=== PATIENT | female | born 1965 | race Caucasian/White ===

== ENCOUNTER 2016-09-21 23:35 | Emergency (ER) | payer MEDICAID, OTHER ==
[~2016-09-21] VITALS: Ht 172.7 cm; Wt 81.6 kg
[2016-09-21 23:35] VITALS: BP_SYST 118
[2016-09-22] MEDS ORDERED: HYDROcodone/ACETAMIN 7.5-325 MG TAB PO ONE (00:15)
[2016-09-22] MEDS ORDERED: KETOROLAC TROMETHAMINE 60 MG/2 ML VIAL IM ONE (00:15)
[2016-09-22 00:50] VITALS: BP_SYST 118
== END 2016-09-22 00:50 | disposition home or self-care (01) ==
LOC: SED 23:35
DX: M25.561 Pain in right knee (principal); Z88.1 Allergy status to other antibiotic agents; Z98.890 Other specified postprocedural states
CPT/HCPCS: 96372; 99283; J1885

== ENCOUNTER 2017-01-20 15:48 | Emergency (ER) | payer MEDICAID, MEDICARE ==
[~2017-01-20] VITALS: Ht 172.7 cm; Wt 81.6 kg
[2017-01-20 15:50] VITALS: BP_SYST 111
[2017-01-20 16:39] LABS: BASOPHILS % (AUTO) 0.4 % (0.0-2.0); EOSINOPHILS # (AUTO) 0.3 K/uL (0.0-0.4); EOSINOPHILS % (AUTO) 5.1 % (0.0-4.0); HEMATOCRIT 39.1 % (36-48); HEMOGLOBIN 13.3 g/dL (12.0-16.0); LYMPHOCYTES % (AUTO) 34.5 % (20.5-51.5); MEAN CORPUSCULAR HEMOGLOBIN 32 pg (27-31); MEAN CORPUSCULAR HGB CONC 34 % (32-36); MEAN CORPUSCULAR VOLUME 93 fL (79.0-98.0); MONOCYTES # (AUTO) 0.3 K/uL (0.0-1.0); MONOCYTES % (AUTO) 4.6 % (1.7-9.3); NEUTROPHILS # (AUTO) 3.1 K/uL (1.8-7.7); NEUTROPHILS % (AUTO) 55.4 % (40.0-70.0); PLATELET COUNT (AUTO) 160 K/uL (130-430); RED BLOOD CELL COUNT(AUTO) 4.21 MIL/uL (4.2-6.2); RED CELL DISTRIBUTION WIDTH 12.3 % (9.0-15.0); WHITE BLOOD COUNT (AUTO) 5.7 K/uL (4.8-10.8)
[2017-01-20 16:55] LABS: PROTHROMBIN TIME 10.6 SECS (9.5-12.5)
[2017-01-20 17:02] LABS: ALBUMIN 3.7 g/dL (3.4-4.8); CREATININE 0.89 mg/dL (0.55-1.30); POTASSIUM 3.8 mmol/L (3.5-5.1); TOTAL BILIRUBIN 0.3 mg/dL (0.0-1.0)
[2017-01-20 17:11] LABS: CALCIUM 8.7 mg/dL (8.4-11.0)
--- NOTE | 2017-01-20 17:51 | NUR ---
Note undone in EDM - 01/20/17 at 1828 by [email or web address] Patient given written and verbal discharge instructions and verbalizes understanding. ER discussed with patient the results and treatment provided. Patient in stable condition. ID arm band removed. No Rx given. Patient educated on pain management and to follow up with PMD. Pain Scale 0. Opportunity for questions provided and answered.
--- NOTE | 2017-01-20 17:56 | NUR ---
Ambulatory to bed 8
--- NOTE | 2017-01-20 17:57 | NUR ---
Placed on soap drier operator. Pt HR 52 - 45. Pt states that her normal HR is in the 40's to 50's. Denies chest pain or palpitations at this time. C/O severe persistant headache since this morning. Taken mult OTC medication without relief.
--- NOTE | 2017-01-20 17:57 | NUR ---
Patient brought to room 8 here for palpitations, chest pressure, ambulatory. Endorsed car to [place] MASON.
--- NOTE | 2017-01-20 17:59 | NUR ---
Pt complains of intermittent palpitations and a headache since 0830 this morning. Per patient she has had a headache since 0830 this morning and "tried every over the counter medication to get rid of it, and nothing worked." Pt states she had felt dizzy at one point today but she thinks it's because of how bad the headache is making her feel. Pt denies N/V at the time. Pt relayed that her resting heart rate baseline is in the 40's. No other injuries/complaints per patient or noted.
[2017-01-20 18:19] LABS: BILIRUBIN,URINE NEGATIVE (NEGATIVE); BLOOD, URINE NEGATIVE (NEGATIVE); CLARITY/URINE CLEAR (CLEAR); COLOR,URINE YELLOW (YELLOW); GLUCOSE,URINE NEGATIVE (NEGATIVE); KETONES,URINE NEGATIVE (NEGATIVE); LEUKOCYTE ESTERASE ,URINE 1+ (NEGATIVE); NITRITE, URINE NEGATIVE (NEGATIVE); PH,URINE 6.5 (5.0-8.0); PROTEIN URINE NEGATIVE (NEGATIVE); UROBILINOGEN,URINE 0.2 (0.2-1.0)
--- NOTE | 2017-01-20 18:30 | NUR ---
Pt was wheeled to radiology by radiology staff, in stable condition.
[2017-01-20 18:36] LABS: BACTERIA,URINE FEW /HPF (None Seen); RBC,URINE 0-3 /HPF (0-3)
--- NOTE | 2017-01-20 19:05 | NUR ---
Assumed care of patient, patient resting quietly in no acute distress. Lights dimmed for patient comfort, patient currently texting on cell phone, awaiting evaluation by ER MD. Will continue to observe and assess.
--- NOTE | 2017-01-20 20:05 | NUR ---
Confirmed with Dr Payne that he did not need a second EKG on this patient. First EKG was shown to Dr Payne, no other EKG performed.
[2017-01-20] MEDS ORDERED: DIPHENHYDRAMINE INJ 50 MG/ML VIAL IVP ONE (20:15)
[2017-01-20] MEDS ORDERED: PROCHLORPERAZINE EDISYLATE 10 MG/2 ML VIAL IVP ONE (20:15)
[2017-01-20] MEDS ORDERED: KETOROLAC TROMETHAMINE 30 MG VIAL IVP ONE (20:15)
--- NOTE | 2017-01-20 20:45 | NUR ---
Patient states that she wants to wait on the Toradol for awhile.
--- NOTE | 2017-01-20 21:05 | NUR ---
Patient now refusing Toradol, states she feels much better and does not want the Toradol. Dr Payne aware, and at bedside to re-evaluate patient.
[2017-01-20 21:40] VITALS: BP_SYST 106
--- NOTE | 2017-01-20 21:40 | NUR ---
Patient given written and verbal discharge instructions and verbalizes understanding. ER MD discussed with patient the results and treatment provided. Patient in stable condition. ID arm band removed. IV catheter removed intact and dressing applied, no active bleeding. Rx of Fioricet given. Patient educated on pain management and to follow up with PMD. Pain Scale 0. Opportunity for questions provided and answered. Patient left ER ambulating with slow, steady gait in no acute distress with family at side. No adverse reaction noted to medication.
== END 2017-01-20 21:40 | disposition home or self-care (01) ==
LOC: SED 15:48
DX: G44.209 Tension-type headache, unspecified, not intractable (principal); Z86.79 Personal history of other diseases of the circulatory system; Z88.1 Allergy status to other antibiotic agents; Z90.49 Acquired absence of other specified parts of digestive tract
CPT/HCPCS: 36415; 70450; 71010; 80053; 81000; 84484; 85025; 85610; 85730; 87086; 93005; 96374; 96375; 99285; J0780; J1200; J1885

== ENCOUNTER 2017-08-01 16:55 | Emergency (ER) | payer MEDICARE ==
[~2017-08-01] VITALS: Ht 172.7 cm; Wt 83.0 kg
[2017-08-01 16:58] VITALS: BP_SYST 123
[2017-08-01] MEDS ORDERED: ASPIRIN 81 MG TAB.CHEW PO ONE (17:15)
[2017-08-01 17:27] LABS: BASOPHILS # (AUTO) 0.1 K/uL (0.0-0.2); BASOPHILS % (AUTO) 1.4 % (0.0-2.0); EOSINOPHILS # (AUTO) 0.3 K/uL (0.0-0.4); EOSINOPHILS % (AUTO) 6.1 % (0.0-4.0); HEMATOCRIT 38.1 % (36-48); HEMOGLOBIN 13.4 g/dL (12.0-16.0); LYMPHOCYTES # (AUTO) 1.8 K/uL (1.0-5.5); LYMPHOCYTES % (AUTO) 36.9 % (20.5-51.5); MEAN CORPUSCULAR HEMOGLOBIN 33 pg (27-31); MEAN CORPUSCULAR HGB CONC 35 % (32-36); MEAN CORPUSCULAR VOLUME 94 fL (79.0-98.0); MONOCYTES # (AUTO) 0.2 K/uL (0.0-1.0); NEUTROPHILS # (AUTO) 2.5 K/uL (1.8-7.7); NEUTROPHILS % (AUTO) 50.6 % (40.0-70.0); PLATELET COUNT (AUTO) 133 K/uL (130-430); RED BLOOD CELL COUNT(AUTO) 4.06 MIL/uL (4.2-6.2); RED CELL DISTRIBUTION WIDTH 12.1 % (9.0-15.0); WHITE BLOOD COUNT (AUTO) 4.9 K/uL (4.8-10.8)
[2017-08-01 17:40] LABS: PROTHROMBIN TIME 10.6 SECS (9.5-12.5)
[2017-08-01 17:42] LABS: CREATININE 0.95 mg/dL (0.55-1.30); POTASSIUM 3.6 mmol/L (3.5-5.1)
[2017-08-01 18:10] LABS: ALBUMIN 3.8 g/dL (3.4-4.8); FREE T4 (FREE THYROXINE) 0.7 ng/dL (0.6-1.6); THYROID STIMULATING HORMONE 1.14 uIu/mL (0.34-4.82); TOTAL BILIRUBIN 0.4 mg/dL (0.0-1.0)
[2017-08-01 19:05] VITALS: BP_SYST 120
[2017-08-01 19:32] LABS: CKMB RELATIVE INDEX 1.2 (0.0-2.9); CREATINE KINASE MB 2.3 ng/mL (0-3.6)
== END 2017-08-01 19:05 | disposition home or self-care (01) ==
LOC: SED 16:55
DX: R00.2 Palpitations (principal); R03.0 Elevated blood-pressure reading, without diagnosis of hypertension; Z86.79 Personal history of other diseases of the circulatory system; Z90.49 Acquired absence of other specified parts of digestive tract; Z88.1 Allergy status to other antibiotic agents
CPT/HCPCS: 36415; 71045; 80053; 82550-TC; 82553-TC; 83880; 84439; 84443-TC; 84484; 85025; 85610-TC; 85730-TC; 93005; 99285

== ENCOUNTER 2017-09-06 21:36 | Emergency (ER) | payer MEDICARE ==
[~2017-09-06] VITALS: Ht 172.7 cm; Wt 80.7 kg
[2017-09-06 21:42] VITALS: BP_SYST 135
== END 2017-09-06 22:25 | disposition left against medical advice (07) ==
LOC: SED 21:36
DX: R06.02 Shortness of breath (principal); Z53.21 Procedure and treatment not carried out due to patient leaving prior to being seen by health care provider

== ENCOUNTER 2017-10-01 09:53 | Emergency (ER) | payer MEDICARE ==
[~2017-10-01] VITALS: Ht 172.7 cm; Wt 78.9 kg
[2017-10-01 10:07] VITALS: BP_SYST 107
[2017-10-01] MEDS ORDERED: KETOROLAC TROMETHAMINE 60 MG/2 ML VIAL IM ONE (10:30)
== END 2017-10-01 14:34 | disposition left against medical advice (07) ==
LOC: SED 09:53
DX: K59.00 Constipation, unspecified (principal); N39.0 Urinary tract infection, site not specified; R10.2 Pelvic and perineal pain; Z88.1 Allergy status to other antibiotic agents; Z88.4 Allergy status to anesthetic agent
CPT/HCPCS: 76830; 76857; 96372; 99284; J1885

== ENCOUNTER 2019-01-04 01:57 | Emergency (ER) | payer BC ==
[~2019-01-04] VITALS: Ht 170.2 cm; Wt 79.4 kg
[2019-01-04 01:58] VITALS: BP_SYST 145
--- NOTE | 2019-01-04 02:15 | NUR ---
Patient left without being seen. No further treatment provided. ER MD aware
--- NOTE | 2019-01-04 02:15 | NUR ---
Called in x3, no answer
[2019-01-04] MEDS ORDERED: ASPIRIN 81 MG TAB.CHEW PO ONE (02:30)
== END 2019-01-04 02:15 | disposition left against medical advice (07) ==
LOC: SED 01:57
CPT/HCPCS: 93005

== ENCOUNTER 2020-05-05 07:17 | Emergency (ER) | payer BC ==
[~2020-05-05] VITALS: Ht 170.2 cm; Wt 81.6 kg
[2020-05-05 07:21] VITALS: BP_SYST 126
--- NOTE | 2020-05-05 07:26 | NUR ---
ambulated to bed 4
--- NOTE | 2020-05-05 07:45 | NUR ---
Pt came to ER for low abdominal pain radiating to legs. Pt rates pain 9/10, resting in [facility] at this time, awaiting
[2020-05-05] MEDS ORDERED: KETOROLAC TROMETHAMINE 30 MG VIAL ONE (07:59)
[2020-05-05] MEDS ORDERED: ONDANSETRON HCL 4 MG/2 ML VIAL ONE (07:59)
[2020-05-05] MEDS ORDERED: KETOROLAC TROMETHAMINE 30 MG VIAL IVP ONE (08:00)
[2020-05-05] MEDS ORDERED: ONDANSETRON HCL 4 MG/2 ML VIAL IVP ONE (08:00)
--- NOTE | 2020-05-05 08:00 | NUR ---
Pt states she does not want medication until after CT results, aware
--- NOTE | 2020-05-05 08:00 | NUR ---
ER at bedside examining patient.
[2020-05-05 08:02] LABS: BASOPHILS % (AUTO) 0.5 % (0.0-2.0); EOSINOPHILS # (AUTO) 0.3 K/uL (0.0-0.4); EOSINOPHILS % (AUTO) 5.5 % (0.0-4.0); HEMATOCRIT 42.2 % (36-48); HEMOGLOBIN 14.2 g/dL (12.0-16.0); LYMPHOCYTES % (AUTO) 39.1 % (20.5-51.5); MEAN CORPUSCULAR HEMOGLOBIN 32 pg (27-31); MEAN CORPUSCULAR HGB CONC 34 % (32-36); MEAN CORPUSCULAR VOLUME 97 fL (79.0-98.0); MONOCYTES # (AUTO) 0.3 K/uL (0.0-1.0); MONOCYTES % (AUTO) 6.4 % (1.7-9.3); NEUTROPHILS # (AUTO) 2.5 K/uL (1.8-7.7); NEUTROPHILS % (AUTO) 48.5 % (40.0-70.0); PLATELET COUNT (AUTO) 138 K/uL (130-430); RED BLOOD CELL COUNT(AUTO) 4.36 MIL/uL (4.2-6.2); RED CELL DISTRIBUTION WIDTH 13.1 % (9.0-15.0); WHITE BLOOD COUNT (AUTO) 5.2 K/uL (4.8-10.8)
[2020-05-05 08:17] LABS: CALCIUM 9.2 mg/dL (8.4-11.0); CREATININE 0.84 mg/dL (0.55-1.30); POTASSIUM 4.9 mmol/L (3.5-5.1)
[2020-05-05 08:23] LABS: ALBUMIN 4.2 g/dL (3.4-4.8); TOTAL BILIRUBIN 0.6 mg/dL (0.0-1.0)
[2020-05-05] MEDS ORDERED: MAGNESIUM CITRATE 300 ML ORAL SOLUTION PO ONE (09:00)
[2020-05-05 09:08] LABS: BILIRUBIN,URINE NEGATIVE (NEGATIVE); BLOOD, URINE NEGATIVE (NEGATIVE); CLARITY/URINE CLEAR (CLEAR); COLOR,URINE YELLOW (YELLOW); GLUCOSE,URINE NEGATIVE (NEGATIVE); KETONES,URINE NEGATIVE (NEGATIVE); LEUKOCYTE ESTERASE ,URINE NEGATIVE (NEGATIVE); NITRITE, URINE NEGATIVE (NEGATIVE); PH,URINE 6.5 (5.0-8.0); PROTEIN URINE NEGATIVE (NEGATIVE); UROBILINOGEN,URINE 0.2 (0.2-1.0)
[2020-05-05 09:18] LABS: BARBITURATE, URINE NEGATIVE (NEG <=200); BENZODIAZEPINE, URINE NEGATIVE (NEG <=150); CANNABINOID, URINE NEGATIVE (NEG <=50); COCAINE, URINE NEGATIVE (NEG <=150); METHAMPHETAMINES SCREEN,URINE NEGATIVE (NEG <=500); OPIATE, URINE NEGATIVE (NEG <=100); PHENCYCLIDINE SCREEN,URINE NEGATIVE (NEG <=25); UR TRICYCLIC ANTIDEPRESSANTS NEGATIVE (NEG <=300); URINE AMPHETAMINE NEGATIVE (NEG <=500); URINE METHADONE NEGATIVE (NEG <=200); URINE OXYCODONE SCREEN NEGATIVE (NEG <=100); URINE PROPOXYPHENE SCREEN NEGATIVE (NEG <=300)
[2020-05-05 09:22] VITALS: BP_SYST 126
== END 2020-05-05 09:22 | disposition home or self-care (01) ==
LOC: SED 07:17
DX: K59.00 Constipation, unspecified (principal); R10.30 Lower abdominal pain, unspecified; Z88.1 Allergy status to other antibiotic agents; Z88.4 Allergy status to anesthetic agent
CPT/HCPCS: 36415; 74176; 80053; 80307; 81003; 81025; 82150; 83605; 83690; 85025; 99284; G0482; 76376; J1885; J2405

== ENCOUNTER 2020-07-30 13:11 | Emergency (ER) | payer BC ==
[~2020-07-30] VITALS: Ht 172.7 cm; Wt 80.7 kg
[2020-07-30 13:11] VITALS: BP_SYST 106
[2020-07-30 14:38] LABS: BASOPHILS % (AUTO) 0.4 % (0.0-2.0); EOSINOPHILS # (AUTO) 0.2 K/uL (0.0-0.4); EOSINOPHILS % (AUTO) 4.7 % (0.0-4.0); HEMATOCRIT 37.4 % (36-48); HEMOGLOBIN 12.9 g/dL (12.0-16.0); LYMPHOCYTES # (AUTO) 1.8 K/uL (1.0-5.5); LYMPHOCYTES % (AUTO) 38.1 % (20.5-51.5); MEAN CORPUSCULAR HEMOGLOBIN 33 pg (27-31); MEAN CORPUSCULAR HGB CONC 34 % (32-36); MEAN CORPUSCULAR VOLUME 95 fL (79.0-98.0); MONOCYTES # (AUTO) 0.2 K/uL (0.0-1.0); MONOCYTES % (AUTO) 5.2 % (1.7-9.3); NEUTROPHILS # (AUTO) 2.4 K/uL (1.8-7.7); NEUTROPHILS % (AUTO) 51.6 % (40.0-70.0); PLATELET COUNT (AUTO) 121 K/uL (130-430); RED BLOOD CELL COUNT(AUTO) 3.93 MIL/uL (4.2-6.2); RED CELL DISTRIBUTION WIDTH 12.9 % (9.0-15.0); WHITE BLOOD COUNT (AUTO) 4.7 K/uL (4.8-10.8)
[2020-07-30 15:09] LABS: CALCIUM 8.9 mg/dL (8.4-11.0); CREATININE 0.86 mg/dL (0.55-1.30); TOTAL BILIRUBIN 0.6 mg/dL (0.0-1.0)
[2020-07-30 15:10] LABS: ALBUMIN 3.6 g/dL (3.4-4.8); URIC ACID 4.6 mg/dL (2.4-7.0)
[2020-07-30 15:11] LABS: C-REACTIVE PROTEIN QUANT 0.2 mg/dL (0-0.5)
[2020-07-30] MEDS ORDERED: HYDR-3917 PO (15:31)
[2020-07-30] MEDS ORDERED: IBUP-1969 PO (15:31)
[2020-07-30 15:39] VITALS: BP_SYST 106
[2020-07-30 15:40] LABS: ERYTHROCYTE SEDIMENTATION RATE 3 MM/HR (0-20)
== END 2020-07-30 15:39 | disposition home or self-care (01) ==
LOC: SED 13:11
DX: M25.552 Pain in left hip (principal); Z88.1 Allergy status to other antibiotic agents
CPT/HCPCS: 36415; 73502; 80053; 84550; 85025; 85651-TC; 86140; 99284

== ENCOUNTER 2020-08-08 02:03 | Emergency (ER) | payer BC ==
[~2020-08-08] VITALS: Ht 165.1 cm; Wt 83.9 kg
[~2020-08-08 02:03] MED LIST: HYDR-3917 PO; IBUP-1969 PO
[2020-08-08 02:05] VITALS: BP_SYST 141
[2020-08-08 03:20] LABS: BASOPHILS % (AUTO) 0.3 % (0.0-2.0); EOSINOPHILS # (AUTO) 0.2 K/uL (0.0-0.4); EOSINOPHILS % (AUTO) 4.8 % (0.0-4.0); HEMATOCRIT 40.9 % (36-48); HEMOGLOBIN 13.8 g/dL (12.0-16.0); LYMPHOCYTES % (AUTO) 43.8 % (20.5-51.5); MEAN CORPUSCULAR HEMOGLOBIN 32 pg (27-31); MEAN CORPUSCULAR HGB CONC 34 % (32-36); MEAN CORPUSCULAR VOLUME 96 fL (79.0-98.0); MONOCYTES # (AUTO) 0.2 K/uL (0.0-1.0); MONOCYTES % (AUTO) 4.8 % (1.7-9.3); NEUTROPHILS # (AUTO) 2.1 K/uL (1.8-7.7); NEUTROPHILS % (AUTO) 46.3 % (40.0-70.0); PLATELET COUNT (AUTO) 119 K/uL (130-430); RED BLOOD CELL COUNT(AUTO) 4.26 MIL/uL (4.2-6.2); RED CELL DISTRIBUTION WIDTH 12.8 % (9.0-15.0); WHITE BLOOD COUNT (AUTO) 4.5 K/uL (4.8-10.8)
[2020-08-08 03:27] LABS: ANION GAP 12 (5-15); CALCIUM 9.1 mg/dL (8.4-11.0); CHLORIDE 109 mmol/L (98-107); CREATININE 0.78 mg/dL (0.55-1.30); GLUCOSE 87 mg/dL (70-99); SODIUM SERUM 146 mmol/L (136-145); UREA NITROGEN, BLOOD 16 mg/dL (8-21)
[2020-08-08 03:29] LABS: GFR AFRICAN AMERICAN 99 mL/min (>90)
[2020-08-08 03:32] LABS: INR 1.1 (0.8-1.2); PROTHROMBIN TIME 11.1 SECS (9.5-12.5)
[2020-08-08 03:42] LABS: ALANINE AMINOTRANSFERASE 28 U/L (12-78); ALBUMIN 3.9 g/dL (3.4-4.8); ASPARTATE AMINOTRANSFERASE 27 U/L (10-37); THYROID STIMULATING HORMONE 3.44 uIu/mL (0.36-3.74); TOTAL BILIRUBIN 0.5 mg/dL (0.0-1.0)
[2020-08-08 03:43] LABS: C-REACTIVE PROTEIN QUANT < 0.2 mg/dL (0-0.5)
[2020-08-08 04:45] VITALS: BP_SYST 136
== END 2020-08-08 04:45 | disposition home or self-care (01) ==
LOC: SED 02:03
DX: R07.2 Precordial pain (principal); I10 Essential (primary) hypertension; Z79.899 Other long term (current) drug therapy
CPT/HCPCS: 36415; 71045; 80053; 83880; 84443; 84484; 85025; 85610-TC; 85730-TC; 86140; 93005; 99285

== ENCOUNTER 2020-08-10 03:24 | Emergency (ER) | payer BC ==
[~2020-08-10] VITALS: Ht 172.7 cm; Wt 79.4 kg
[2020-08-10 03:30] VITALS: BP_SYST 139
--- NOTE | 2020-08-10 03:30 | NUR ---
Patient triaged and placed in waiting room. VSS and patient appears in no acute distress at this time. Accompanied by , awaiting available bed, and MD notified of need for MSE.
[2020-08-10 04:15] LABS: BASOPHILS # (AUTO) 0.1 K/uL (0.0-0.2); BASOPHILS % (AUTO) 1.4 % (0.0-2.0); EOSINOPHILS # (AUTO) 0.3 K/uL (0.0-0.4); EOSINOPHILS % (AUTO) 5.4 % (0.0-4.0); HEMOGLOBIN 13.6 g/dL (12.0-16.0); LYMPHOCYTES # (AUTO) 2.1 K/uL (1.0-5.5); LYMPHOCYTES % (AUTO) 39.6 % (20.5-51.5); MEAN CORPUSCULAR HEMOGLOBIN 32 pg (27-31); MEAN CORPUSCULAR HGB CONC 34 % (32-36); MEAN CORPUSCULAR VOLUME 95 fL (79.0-98.0); MONOCYTES # (AUTO) 0.3 K/uL (0.0-1.0); MONOCYTES % (AUTO) 4.9 % (1.7-9.3); NEUTROPHILS # (AUTO) 2.5 K/uL (1.8-7.7); NEUTROPHILS % (AUTO) 48.7 % (40.0-70.0); PLATELET COUNT (AUTO) 126 K/uL (130-430); RED BLOOD CELL COUNT(AUTO) 4.19 MIL/uL (4.2-6.2); RED CELL DISTRIBUTION WIDTH 12.9 % (9.0-15.0); WHITE BLOOD COUNT (AUTO) 5.2 K/uL (4.8-10.8)
[2020-08-10 04:25] LABS: CALCIUM 9.2 mg/dL (8.4-11.0); CREATININE 0.82 mg/dL (0.55-1.30)
--- NOTE | 2020-08-10 04:29 | NUR ---
Received patient to ER w/ c/o chest pain on/off x5 days for which patient has been seen at various locations ([facility] and [place]-x2 days ago). Per patient concerned that her CP is not being resolved. HR noted in low 40's, patient asymptomatic w/ exception of intermittent cp. Patient resting quietly. No acute distress noted. Vital signs within normal range. Introduced self to patient, positioned for comfort. continue to monitor.
--- NOTE | 2020-08-10 04:29 | NUR ---
Placed in room 5 . Placed on environmental monitoring specialist, blood pressure machine and pulse oximeter. To gown for exam. Side rails up. Report given to Fahad MASON.
[2020-08-10 04:31] LABS: ALBUMIN 3.8 g/dL (3.4-4.8); TOTAL BILIRUBIN 0.4 mg/dL (0.0-1.0)
[2020-08-10] MEDS ORDERED: ESOM20CA PO (05:35)
[2020-08-10 06:02] VITALS: BP_SYST 132
--- NOTE | 2020-08-10 06:02 | NUR ---
Patient given written and verbal discharge instructions and verbalizes understanding. ER MD discussed with patient the results and treatment provided. Patient in stable condition. ID arm band removed. Rx of Nexium given. Patient educated on pain management and to follow up with PMD. Pain Scale 0. Opportunity for questions provided and answered. Medication side effect fact sheet provided.
== END 2020-08-10 06:02 | disposition home or self-care (01) ==
LOC: SED 03:24
DX: R07.2 Precordial pain (principal); Z88.1 Allergy status to other antibiotic agents; Z88.8 Allergy status to other drugs, medicaments and biological substances; Z79.899 Other long term (current) drug therapy
CPT/HCPCS: 36415; 80053; 84484; 85025; 93005; 99284

== ENCOUNTER 2020-08-22 01:42 | Emergency (ER) | payer BC ==
[~2020-08-22] VITALS: Ht 172.7 cm; Wt 79.4 kg
[~2020-08-22 01:42] MED LIST changes: +ESOM20CA PO
[2020-08-22 01:45] VITALS: BP_SYST 121
[2020-08-22 02:52] LABS: BASOPHILS % (AUTO) 0.4 % (0.0-2.0); EOSINOPHILS # (AUTO) 0.2 K/uL (0.0-0.4); EOSINOPHILS % (AUTO) 4.5 % (0.0-4.0); HEMATOCRIT 39.5 % (36-48); HEMOGLOBIN 13.4 g/dL (12.0-16.0); LYMPHOCYTES # (AUTO) 1.9 K/uL (1.0-5.5); LYMPHOCYTES % (AUTO) 38.2 % (20.5-51.5); MEAN CORPUSCULAR HEMOGLOBIN 32 pg (27-31); MEAN CORPUSCULAR HGB CONC 34 % (32-36); MEAN CORPUSCULAR VOLUME 95 fL (79.0-98.0); MONOCYTES # (AUTO) 0.3 K/uL (0.0-1.0); MONOCYTES % (AUTO) 5.5 % (1.7-9.3); NEUTROPHILS # (AUTO) 2.6 K/uL (1.8-7.7); NEUTROPHILS % (AUTO) 51.4 % (40.0-70.0); PLATELET COUNT (AUTO) 126 K/uL (130-430); RED BLOOD CELL COUNT(AUTO) 4.16 MIL/uL (4.2-6.2); RED CELL DISTRIBUTION WIDTH 12.8 % (9.0-15.0); WHITE BLOOD COUNT (AUTO) 5.1 K/uL (4.8-10.8)
[2020-08-22 02:58] LABS: CALCIUM 8.5 mg/dL (8.4-11.0); CREATININE 0.79 mg/dL (0.55-1.30); POTASSIUM 3.8 mmol/L (3.5-5.1)
[2020-08-22 03:03] LABS: ALBUMIN 3.7 g/dL (3.4-4.8); TOTAL BILIRUBIN 0.3 mg/dL (0.0-1.0)
[2020-08-22] MEDS ORDERED: NITROGLYCERIN 0.4 MG TAB.SUBL SL ONE (03:45)
[2020-08-22] MEDS ORDERED: PANTOPRAZOLE SODIUM 40 MG/VIAL (PROTONIX) IVP ONE (04:00)
[2020-08-22 04:32] VITALS: BP_SYST 104
== END 2020-08-22 04:32 | disposition home or self-care (01) ==
LOC: SED 01:42
DX: R07.2 Precordial pain (principal); F41.9 Anxiety disorder, unspecified
CPT/HCPCS: 36415; 71045; 80053; 83880; 84484; 85025; 85379; 93005; 96374; 99285; C9113

== ENCOUNTER 2021-09-05 13:26 | Emergency (ER) | payer BC ==
[~2021-09-05] VITALS: Ht 172.7 cm; Wt 83.9 kg
[2021-09-05 13:34] VITALS: BP_SYST 125
[2021-09-05] MEDS ORDERED: DIPH25TA62 PO (14:04)
--- NOTE | 2021-09-05 15:53 | NUR ---
PT LEFT WITHOUT DC PAPERWORK. RUBEN TURNER MADE AWARE.
== END 2021-09-05 16:00 | disposition home or self-care (01) ==
LOC: SED 13:26
DX: T63.441A Toxic effect of venom of bees, accidental (unintentional), initial encounter (principal); R22.31 Localized swelling, mass and lump, right upper limb; Z88.1 Allergy status to other antibiotic agents; Z88.4 Allergy status to anesthetic agent; Z79.899 Other long term (current) drug therapy; Y92.89 Other specified places as the place of occurrence of the external cause
CPT/HCPCS: 99282

== ENCOUNTER 2021-12-08 17:35 | Emergency (ER) | payer BC ==
[~2021-12-08 17:35] MED LIST changes: +DIPH25TA62 PO
== END 2021-12-08 18:05 | disposition left against medical advice (07) ==
LOC: SED 17:35
DX: R10.30 Lower abdominal pain, unspecified (principal); Z53.21 Procedure and treatment not carried out due to patient leaving prior to being seen by health care provider

== ENCOUNTER 2023-05-06 06:28 | Emergency (ER) | payer BC ==
[~2023-05-06] VITALS: Ht 172.7 cm; Wt 83.9 kg
[~2023-05-06 06:28] MED LIST changes: +OSEL75CA PO
[2023-05-06 06:42] VITALS: BP_SYST 116; PULSE 57; RESP 19; TEMP 96.7; O2SAT 98
[2023-05-06] MEDS: KETOROLAC TROMETHAMINE 30 MG VIAL IM ONE (06:52)
[2023-05-06] MEDS ORDERED: DICL75TA5 PO (08:23)
[2023-05-06 09:14] VITALS: BP_SYST 118; PULSE 54; RESP 18; TEMP 97.3; O2SAT 96
== END 2023-05-06 09:01 | disposition home or self-care (01) ==
LOC: SED 06:28
DX: M23.92 Unspecified internal derangement of left knee (principal); Z88.1 Allergy status to other antibiotic agents; Z88.5 Allergy status to narcotic agent; Z79.899 Other long term (current) drug therapy
CPT/HCPCS: 99283; 29505; 73560; 96372; J1885

== ENCOUNTER 2023-07-23 22:22 | Emergency (ER) | payer OTHER, BC ==
[~2023-07-23] VITALS: Ht 172.7 cm; Wt 79.4 kg
[~2023-07-23 22:22] MED LIST changes: +DICL75TA5 PO
[2023-07-23 22:27] VITALS: BP_SYST 108; PULSE 66; RESP 18; TEMP 97.2; O2SAT 99
[2023-07-23] MEDS: ASPIRIN 325 MG TABLET PO ONE (23:02)
[2023-07-23 23:55] LABS: BASOPHILS % (AUTO) 0.4 % (0.0-2.0); EOSINOPHILS # (AUTO) 0.2 K/uL (0.0-0.4); EOSINOPHILS % (AUTO) 3.7 % (0.0-4.0); HEMATOCRIT 34.3 % (36-48); HEMOGLOBIN 12.1 g/dL (12.0-16.0); LYMPHOCYTES # (AUTO) 1.3 K/uL (1.0-5.5); LYMPHOCYTES % (AUTO) 29.2 % (20.5-51.5); MEAN CORPUSCULAR HEMOGLOBIN 32 pg (27-31); MEAN CORPUSCULAR HGB CONC 35 % (32-36); MEAN CORPUSCULAR VOLUME 92 fL (79.0-98.0); MONOCYTES # (AUTO) 0.4 K/uL (0.0-1.0); NEUTROPHILS # (AUTO) 2.7 K/uL (1.8-7.7); NEUTROPHILS % (AUTO) 58.7 % (40.0-70.0); PLATELET COUNT (AUTO) 165 K/uL (130-430); RED BLOOD CELL COUNT(AUTO) 3.74 MIL/uL (4.2-6.2); RED CELL DISTRIBUTION WIDTH 12.9 % (9.0-15.0); WHITE BLOOD COUNT (AUTO) 4.5 K/uL (4.8-10.8)
[2023-07-24 00:19] LABS: ANION GAP 9 (5-15); CALCIUM 8.3 mg/dL (8.4-11.0); CARBON DIOXIDE 28 mmol/L (23-29); CHLORIDE 106 mmol/L (98-107); CREATININE 1.07 mg/dL (0.55-1.30); GFR AFRICAN AMERICAN 68 mL/min (>90); GFR NON AFRICAN-AMERICAN 56 mL/min (>90); GLUCOSE 138 mg/dL (74-106); POTASSIUM 3.6 mmol/L (3.5-5.1); SODIUM SERUM 143 mmol/L (136-145); UREA NITROGEN, BLOOD 16 mg/dL (8-21)
[2023-07-24 00:54] VITALS: BP_SYST 107; PULSE 62; RESP 18; O2SAT 95
== END 2023-07-24 00:55 | disposition home or self-care (01) ==
LOC: SED 22:22
DX: R07.89 Other chest pain (principal); M25.512 Pain in left shoulder; Z88.1 Allergy status to other antibiotic agents; Z88.4 Allergy status to anesthetic agent; Z79.899 Other long term (current) drug therapy; Z79.2 Long term (current) use of antibiotics
CPT/HCPCS: 36415; 80048; 84484; 85025; 93005; 99284